=== PATIENT | male | born 1985 | race African-American/Black ===

== ENCOUNTER 2020-09-26 17:58 | Emergency (ER) | payer OTHER ==
[2020-09-26] MEDS ORDERED: MEDROL 4MG DOSEP4 MG PO (19:59)
[2020-09-26] MEDS ORDERED: NORCO 5-325 TA1 EACH PO (19:59)
[2020-09-26] MEDS ORDERED: NAPROSYN375 MG PO (19:59)
[2020-09-26] MEDS ORDERED: FLEXERIL5 MG PO (19:59)
== END 2020-09-26 20:11 | disposition home or self-care (01) ==
LOC: FER 17:58
DX: S39.012A Strain of muscle, fascia and tendon of lower back, initial encounter (principal); I10 Essential (primary) hypertension; F17.210 Nicotine dependence, cigarettes, uncomplicated; X50.1XXA Overexertion from prolonged static or awkward postures, initial encounter
CPT/HCPCS: 72110

== ENCOUNTER 2021-11-24 13:39 | Emergency (ER) | payer OTHER ==
[~2021-11-24 13:39] MED LIST: FLEXERIL5 MG PO; MEDROL 4MG DOSEP4 MG PO; NAPROSYN375 MG PO; NORCO 5-325 TA1 EACH PO
[2021-11-24] MEDS ORDERED: MEDROL 4MG DOSEP4 MG PO (16:29)
== END 2021-11-24 16:38 | disposition home or self-care (01) ==
LOC: FER 13:39
DX: S20.211A Contusion of right front wall of thorax, initial encounter (principal); Z28.310 Unvaccinated for COVID-19; W19.XXXA Unspecified fall, initial encounter
CPT/HCPCS: 71046; J1885